=== PATIENT | male | born 1975 | race Caucasian/White ===

== ENCOUNTER 2017-11-09 15:12 | Observation (INO) | payer SELFPAY ==
[~2017-11-09] VITALS: Ht 165.1 cm; Wt 67.1 kg
[2017-11-09] VITALS (8 sets, daily range): BP systolic 110–131; BP diastolic 63–84; PULSE 102–148; RESP 16–18; TEMP 97.9–99.2; O2SAT 93–100
[2017-11-09] MEDS ORDERED: SODIUM CHLOR 0.9% 1000 ML INJ 1,000 ML IV ONE (15:23)
--- NOTE | 2017-11-09 15:29 | PD ---
HPI Chief Complaint: OD/ Ingestion Time Seen by Provider: 15:14 Travel History International Travel<30 days: No Contact w/Intl Traveler<30days: No Traveled to known affect area: No History of Present Illness HPI The patient is a 41-year-old male who presents to the emergency department via EMS after an apparent accidental overdose. The patient states he injected heroin prior to arrival in the right hand. The patient was found on the ground by friends, unresponsive, with snoring respirations according to EMS. Police tried to give the patient nasal Narcan, there was no response. When EMS arrived they placed an IV and administered 0.8 mg of Narcan. The patient then awakened and was alert and oriented. The patient states he just got out of "[facility] "shelter and has been complaining of right shoulder pain for several months. The patient states his right shoulder is dislocated and he is unable to use it with standing upright. The patient denies any chest pain, shortness breath, nausea, vomiting, or abdominal pain. He does have a history of illicit drug use. He denies the use of any methamphetamines, cocaine, or alcohol prior to arrival. [facility] Past Medical History Medical History: Denies Significant Hx LMP: n/a Past Surgical History Surgical History: No Previous Surgery Social History Alcohol Use: No Tobacco Use: Yes Substance Use: Yes (IV opiates) Allergies-Medications (Allergen,Severity, Reaction): Coded Allergies: No Known Allergies (Unverified , 11/09/17) Reported Meds & Prescriptions Reported Meds & Active Scripts Active No Active Prescriptions or Reported Medications Review of Systems Except as stated in HPI: all other systems reviewed are Neg General / Constitutional: No: Fever Cardiovascular: No: Chest Pain or Discomfort Respiratory: No: Shortness of Breath Gastrointestinal: No: Nausea, Vomiting, Abdominal Pain Musculoskeletal: Positive: Limited ROM, Pain Neurologic: No: Dizziness Psychiatric: Positive: Substance Abuse Physical Exam Narrative GENERAL: Awake, alert, pleasant 41-year-old male who appears his stated age and is in no acute respiratory distress. SKIN: Focused skin assessment warm/dry. HEAD: Atraumatic. Normocephalic. EYES: Pupils equal and round. No scleral icterus. No injection or drainage. ENT: No nasal bleeding or discharge. Mucous membranes pink and moist. NECK: Trachea midline. No JVD. CARDIOVASCULAR: Regular, tachycardic with a heart rate in the 130s. RESPIRATORY: No accessory muscle use. Clear to auscultation. Breath sounds equal bilaterally. GASTROINTESTINAL: Abdomen soft, non-tender, nondistended. No rebound tenderness. MUSCULOSKELETAL: Mild swelling of the right shoulder. Limited ability to actively abduct and extend the right shoulder. Passively I'm able to extend it to 60 and abduct it to 45. NEUROLOGICAL: Awake and alert. No obvious cranial nerve deficits. Motor grossly within normal limits. Normal speech. Nonfocal. Oriented 3. PSYCHIATRIC: Appropriate mood and affect; insight and judgment normal. Data Data Last Documented VS Vital Signs Date Time Temp Pulse Resp B/P (MAP) Pulse Ox O2 Delivery O2 Flow Rate FiO2 11/09/17 17:28 18 97 11/09/17 17:26 108 Nasal Cannula 2.00 11/09/17 15:17 99.2 Orders Orders Electrocardiogram (11/09/17 15:23) Complete Blood Count With Diff (11/09/17 15:23) Comprehensive Metabolic Panel (11/09/17 15:23) Chest, Single Ap (11/09/17 15:23) Iv Access Insert/Monitor (11/09/17 15:23) Ecg Monitoring (11/09/17 15:23) Oximetry (11/09/17 15:23) Sodium Chloride 0.9% Flush (Ns Flush) (11/09/17 15:30) Sodium Chlor 0.9% 1000 Ml Inj (Ns 1000 M (11/09/17 15:23) Drug Screen, Random Urine (11/09/17 15:23) Alcohol (Ethanol) (11/09/17 15:23) Shoulder, Limited(2vws) (11/09/17 ) Naloxone Inj (Narcan Inj) (11/09/17 18:30) Admit Order (Ed Use Only) (11/09/17 18:32) Labs Laboratory Tests Test 11/09/17 15:40 White Blood Count 11.2 TH/MM3 Red Blood Count 3.73 MIL/MM3 Hemoglobin 10.9 GM/DL Hematocrit 32.9 % Mean Corpuscular Volume 88.2 FL Mean Corpuscular Hemoglobin 29.3 PG Mean Corpuscular Hemoglobin Concent 33.2 % Red Cell Distribution Width 13.3 % Platelet Count 170 TH/MM3 Mean Platelet Volume 7.0 FL Neutrophils (%) (Auto) 69.4 % Lymphocytes (%) (Auto) 17.1 % Monocytes (%) (Auto) 11.7 % Eosinophils (%) (Auto) 0.5 % Basophils (%) (Auto) 1.3 % Neutrophils # (Auto) 7.8 TH/MM3 Lymphocytes # (Auto) 1.9 TH/MM3 Monocytes # (Auto) 1.3 TH/MM3 Eosinophils # (Auto) 0.1 TH/MM3 Basophils # (Auto) 0.1 TH/MM3 CBC Comment AUTO DIFF Differential Total Cells Counted 100 Neutrophils % (Manual) 69 % Band Neutrophils % 7 % Lymphocytes % 14 % Monocytes % 10 % Neutrophils # (Manual) 8.5 TH/MM3 Differential Comment FINAL DIFF MANUAL Platelet Estimate NORMAL Platelet Morphology Comment NORMAL Blood Urea Nitrogen 18 MG/DL Creatinine 1.48 MG/DL Random Glucose 125 MG/DL Total Protein 7.0 GM/DL Albumin 3.0 GM/DL Calcium Level 8.3 MG/DL Alkaline Phosphatase 127 U/L Aspartate Amino Transf (AST/SGOT) 110 U/L Alanine Aminotransferase (ALT/SGPT) 271 U/L Total Bilirubin 0.4 MG/DL Sodium Level 137 MEQ/L Potassium Level 3.6 MEQ/L Chloride Level 104 MEQ/L Carbon Dioxide Level 23.2 MEQ/L Anion Gap 10 MEQ/L Estimat Glomerular Filtration Rate 53 ML/MIN Ethyl Alcohol Level LESS THAN 3 MG/DL MDM Medical Decision Making Medical Screen Exam Complete: Yes Emergency Medical Condition: Yes Medical Record Reviewed: Yes Interpretation(s) EKG reveals sinus tachycardia with short FL interval. Rate 140. Laboratory Tests Test 11/09/17 15:40 White Blood Count 11.2 TH/MM3 Red Blood Count 3.73 MIL/MM3 Hemoglobin 10.9 GM/DL Hematocrit 32.9 % Mean Corpuscular Volume 88.2 FL Mean Corpuscular Hemoglobin 29.3 PG Mean Corpuscular Hemoglobin Concent 33.2 % Red Cell Distribution Width 13.3 % Platelet Count 170 TH/MM3 Mean Platelet Volume 7.0 FL Neutrophils (%) (Auto) 69.4 % Lymphocytes (%) (Auto) 17.1 % Monocytes (%) (Auto) 11.7 % Eosinophils (%) (Auto) 0.5 % Basophils (%) (Auto) 1.3 % Neutrophils # (Auto) 7.8 TH/MM3 Lymphocytes # (Auto) 1.9 TH/MM3 Monocytes # (Auto) 1.3 TH/MM3 Eosinophils # (Auto) 0.1 TH/MM3 Basophils # (Auto) 0.1 TH/MM3 CBC Comment AUTO DIFF Differential Total Cells Counted 100 Neutrophils % (Manual) 69 % Band Neutrophils % 7 % Lymphocytes % 14 % Monocytes % 10 % Neutrophils # (Manual) 8.5 TH/MM3 Differential Comment FINAL DIFF MANUAL Platelet Estimate NORMAL Platelet Morphology Comment NORMAL Blood Urea Nitrogen 18 MG/DL Creatinine 1.48 MG/DL Random Glucose 125 MG/DL Total Protein 7.0 GM/DL Albumin 3.0 GM/DL Calcium Level 8.3 MG/DL Alkaline Phosphatase 127 U/L Aspartate Amino Transf (AST/SGOT) 110 U/L Alanine Aminotransferase (ALT/SGPT) 271 U/L Total Bilirubin 0.4 MG/DL Sodium Level 137 MEQ/L Potassium Level 3.6 MEQ/L Chloride Level 104 MEQ/L Carbon Dioxide Level 23.2 MEQ/L Anion Gap 10 MEQ/L Estimat Glomerular Filtration Rate 53 ML/MIN Ethyl Alcohol Level LESS THAN 3 MG/DL Last Impressions Chest X-Ray 11/09/17 1523 Signed Impressions: Service Date/Time: Thursday, November 09, 2017 15:45 - CONCLUSION: No acute disease. Figueroa Montero MD Shoulder X-Ray 11/09/17 0000 Signed Impressions: Service Date/Time: Thursday, November 09, 2017 15:47 - CONCLUSION: Large defect humeral head likely related to old fracture. Figueroa Montero MD Differential Diagnosis Differential diagnosis includes opiate overdose, accidental overdose, withdrawal , aspiration, hypoxia, polysubstance abuse, electrolyte abnormality, dehydration. Narrative Course IV was established, labs are drawn and sent, and the patient was placed on cardiac telemetry monitoring and continuous pulse oximetry monitoring. Chest x- ray and x-ray the right shoulder were obtained. The patient was administered 1 L of IV fluids. Shoulder x-ray reveals a large defect likely related to an old fracture. Chest x-rays unremarkable. ALT and AST are elevated. The patient was monitored in the emergency department, his heart rate came down to 100. However, the patient's oxygen saturation would drop to 88% on room air. The patient was reevaluated at 6 PM and had to have a sternal rub. Therefore, the patient was administered a second dose of Narcan 0.4 mg intravenously. The patient will require 23 hour observation into the opiates have worn off. Physician Communication Physician Communication The on-call medical service was paged for 23 hour observation. I discussed the patient with Dr. Anand who agrees with 23 hour observation. Diagnosis Primary Impression: Accidental heroin overdose Qualified Codes: T40.1X1A - Poisoning by heroin, accidental (unintentional), initial encounter Admitting Information Admitting Physician Requests: Observation Patient Instructions: General Instructions Additional Instructions: Stop using illegal drugs. Follow-up with [facility]. Return if symptoms worsen or progress. Scripts No Active Prescriptions or Reported Meds Condition: Stable James Dang MD Nov 09, 2017 15:29
[2017-11-09] MEDS ORDERED: SODIUM CHLORIDE 0.9% FLUSH 10 ML FLUSH IVF PRN (15:30)
[2017-11-09 15:59] LABS: AUTOMATED NEUTROPHIL # 7.8 TH/MM3 (1.8-7.7); BASOPHIL # 0.1 TH/MM3 (0-0.2); BASOPHIL % 1.3 % (0.0-2.0); EOSINOPHIL # 0.1 TH/MM3 (0-0.4); EOSINOPHIL % 0.5 % (0.0-4.0); HEMATOCRIT 32.9 % (39.0-51.0); HEMOGLOBIN 10.9 GM/DL (13.0-17.0); LYMPH % 17.1 % (9.0-44.0); LYMPHOCYTE # 1.9 TH/MM3 (1.0-4.8); MEAN CELL VOLUME 88.2 FL (80.0-100.0); MEAN CORPUSCULAR HEMOGLOBIN 29.3 PG (27.0-34.0); MEAN CORPUSCULAR HGB CONC 33.2 % (32.0-36.0); MONO % 11.7 % (0.0-8.0); MONOCYTE # 1.3 TH/MM3 (0-0.9); NEUT % 69.4 % (16.0-70.0); PLATELET COUNT 170 TH/MM3 (150-450); RED BLOOD COUNT 3.73 MIL/MM3 (4.50-5.90); RED CELL DISTRIBUTION WIDTH 13.3 % (11.6-17.2); WHITE BLOOD COUNT 11.2 TH/MM3 (4.0-11.0)
--- NOTE | 2017-11-09 16:06 | RADRPT ---
EXAM DATE/TIME: 11/09/2017 15:45 [facility] COMPARISON: No previous studies available for comparison. INDICATIONS : Shortness of breath for one day. MEDICAL HISTORY : None. SURGICAL HISTORY : None. ENCOUNTER: Initial ACUITY: 1 day PAIN SCORE: 0/10 LOCATION: Bilateral chest FINDINGS: A single view of the chest demonstrates the lungs to be symmetrically aerated without evidence of mas s, infiltrate or effusion. The cardiomediastinal contours are unremarkable. Osseous structures are intact. CONCLUSION: No acute disease. Figueroa Montero MD on November 09, 2017 at 16:03 Board Certified Radiologist. This report was verified electronically.
--- NOTE | 2017-11-09 16:07 | RADRPT ---
EXAM DATE/TIME: 11/09/2017 15:47 [facility] COMPARISON: No previous studies available for comparison. INDICATIONS : Right shoulder pain for 2 months. No trauma. MEDICAL HISTORY : None. SURGICAL HISTORY : None. ENCOUNTER: Initial ACUITY: 2 months PAIN SCORE: 7/10 LOCATION: Right shoulder. FINDINGS: Two view examination of the right shoulder demonstrates large defect along the superolateral humeral head likely related to old fracture.. The glenohumeral and acromioclavicular joints are maintained. Bony mineralization is normal. CONCLUSION: Large defect humeral head likely related to old fracture. Figueroa Montero MD on November 09, 2017 at 16:03 Board Certified Radiologist. This report was verified electronically.
[2017-11-09 16:14] LABS: ALT (GPT) 271 U/L (12-78); AST (GOT) 110 U/L (15-37); BICARBONATE 23.2 MEQ/L (21.0-32.0); BLOOD UREA NITROGEN 18 MG/DL (7-18); CALCIUM 8.3 MG/DL (8.5-10.1); CHLORIDE 104 MEQ/L (98-107); CREATININE 1.48 MG/DL (0.60-1.30); GLOMERULAR FILTRATION RATE 53 ML/MIN (>89); GLUCOSE,RANDOM 125 MG/DL (74-106); SODIUM (NA) 137 MEQ/L (136-145)
[2017-11-09 16:17] LABS: ALKALINE PHOSPHATASE 127 U/L (45-117); TOTAL BILIRUBIN ADULT 0.4 MG/DL (0.2-1.0)
[2017-11-09 16:49] LABS: BANDS 7 % (0-6); LYMPHOCYTES 14 % (9-44); MONOCYTES 10 % (0-8); NEUTROPHIL # MANUAL DIFF 8.5 TH/MM3 (1.8-7.7); POLYS (SEG NEUTROPHILS) 69 % (16-70)
[2017-11-09] MEDS ORDERED: NALOXONE HCL 0.4 MG/ML AMP IV PUSH ONE (18:30)
[2017-11-09] MEDS ORDERED: LACTULOSE SYRUP 20 GM/30 ML CUP PO PRN (19:30)
[2017-11-09] MEDS ORDERED: ONDANSETRON HCL 4 MG/2 ML VIAL IVP PRN (19:30)
[2017-11-09] MEDS ORDERED: MAGNESIUM HYDROXIDE SUSP 30 ML CUP PO PRN (19:30)
[2017-11-09] MEDS ORDERED: BISACODYL 10 MG SUPP RECTAL PRN (19:30)
[2017-11-09] MEDS ORDERED: NALOXONE HCL 0.4 MG/ML AMP IV PUSH PRN (19:30)
[2017-11-09] MEDS ORDERED: SODIUM CHLORIDE 0.9% FLUSH 10 ML FLUSH IV FLUSH PRN (19:30)
[2017-11-09] MEDS ORDERED: SENNOSIDES 8.6 MG TAB PO PRN (19:30)
[2017-11-09] MEDS ORDERED: ACETAMINOPHEN 325 MG TAB PO PRN (19:30)
--- NOTE | 2017-11-09 19:49 | HHI.HP ---
[facility] Service [facility] Primary Care Physician Unknown Admission Diagnosis accidental heroin overdose, tachycardia, hypoxia Diagnoses: Travel History International Travel<30 Days: No Contact w/Intl Traveler <30 Da: No Traveled to Known Affected Are: No History of Present Illness 41-year-old male with a past medical history significant for IV drug abuse was brought to the emergency department by EMS for evaluation of possible overdose. The patient reports injecting heroin into his right arm and then does not remember anything until waking in the emergency department. Per ED records, the patient was found by friends unresponsive with snoring respirations according to EMS. Police administered nasal Narcan without response. EMS arrived and placed an IV and administered 0.8 mg of Narcan for which the patient was then awakened and found to be alert and oriented. The patient reports he was released from halfway yesterday. He also complains of a right shoulder "dislocation" with pain and limited range of motion. Vital signs: Pulse 114, respirations 18, BP 116/72, pulse ox 100% on room air. The patient has required repeat administration of Narcan at 6 PM with a drop in his oxygen saturation to 88%. Review of Systems Denies fever or chills Denies blurry vision, otorrhea, rhinorrhea Denies sore throat and cough No chest pain, palpitations No shortness of breath or wheezing No abdominal pain Denies constipation/diarrhea/nausea/vomiting Positive right shoulder pain Denies focal weakness No rashes Past Family Social History Past Medical History IV drug abuse Past Surgical History None Reported Medications None Allergies: Coded Allergies: No Known Allergies (Unverified , 11/09/17) Family History Father with diabetes mellitus. Social History Positive tobacco. Denies alcohol. Admits to IV drug abuse, heroin and cocaine. Denies any benzodiazepine use. Physical Exam Vital Signs Vital Signs Date Time Temp Pulse Resp B/P (MAP) Pulse Ox O2 Delivery O2 Flow Rate FiO2 11/09/17 19:00 114 18 116/72 (87) 100 Room Air 11/09/17 17:28 18 97 11/09/17 17:26 108 16 110/63 (79) 100 Nasal Cannula 2.00 11/09/17 15:57 115 18 125/79 (94) 98 Nasal Cannula 2.00 11/09/17 15:26 18 94 11/09/17 15:21 18 96 Room Air 11/09/17 15:17 99.2 148 18 131/78 (95) 93 Physical Exam GENERAL: male sitting up in bed SKIN: No rashes, ecchymoses or lesions. Cool and dry. HEAD: Atraumatic. Normocephalic. No temporal or scalp tenderness. EYES: Pupils equal round and reactive. Extraocular motions intact. No scleral icterus. No injection or drainage. ENT: Nose without bleeding, purulent drainage or septal hematoma. Throat without erythema, tonsillar hypertrophy or exudate. Uvula midline. Airway patent. NECK: Trachea midline. No JVD or lymphadenopathy. Supple, nontender, no meningeal signs. CARDIOVASCULAR: Tachycardic with regular rhythm without murmurs, gallops, or rubs. RESPIRATORY: Clear to auscultation. Breath sounds equal bilaterally. No wheezes , rales, or rhonchi. GASTROINTESTINAL: Abdomen soft, non-tender, nondistended. No hepato-splenomegaly , or palpable masses. No guarding. MUSCULOSKELETAL: Extremities without clubbing, cyanosis, or edema. No joint tenderness, effusion, or edema noted. No calf tenderness. NEUROLOGICAL: Awake and alert. Cranial nerves II through XII intact. Decreased muscle strength in the right shoulder, unable to assess as patient refused to participate in the exam secondary to pain. Full passive range of motion of the right shoulder. Remainder strength 5/5 throughout. Normal speech. Laboratory Laboratory Tests Test 11/09/17 15:40 White Blood Count 11.2 Red Blood Count 3.73 Hemoglobin 10.9 Hematocrit 32.9 Mean Corpuscular Volume 88.2 Mean Corpuscular Hemoglobin 29.3 Mean Corpuscular Hemoglobin Concent 33.2 Red Cell Distribution Width 13.3 Platelet Count 170 Mean Platelet Volume 7.0 Neutrophils (%) (Auto) 69.4 Lymphocytes (%) (Auto) 17.1 Monocytes (%) (Auto) 11.7 Eosinophils (%) (Auto) 0.5 Basophils (%) (Auto) 1.3 Neutrophils # (Auto) 7.8 Lymphocytes # (Auto) 1.9 Monocytes # (Auto) 1.3 Eosinophils # (Auto) 0.1 Basophils # (Auto) 0.1 CBC Comment AUTO DIFF Differential Total Cells Counted 100 Neutrophils % (Manual) 69 Band Neutrophils % 7 Lymphocytes % 14 Monocytes % 10 Neutrophils # (Manual) 8.5 Differential Comment FINAL DIFF MANUAL Platelet Estimate NORMAL Platelet Morphology Comment NORMAL Blood Urea Nitrogen 18 Creatinine 1.48 Random Glucose 125 Total Protein 7.0 Albumin 3.0 Calcium Level 8.3 Alkaline Phosphatase 127 Aspartate Amino Transf (AST/SGOT) 110 Alanine Aminotransferase (ALT/SGPT) 271 Total Bilirubin 0.4 Sodium Level 137 Potassium Level 3.6 Chloride Level 104 Carbon Dioxide Level 23.2 Anion Gap 10 Estimat Glomerular Filtration Rate 53 Ethyl Alcohol Level LESS THAN 3 Result Diagram: 11/09/17 1540 11/09/17 1540 Caprini VTE Risk Assessment Caprini VTE Risk Assessment: No/Low Risk (score <= 1) Caprini Risk Assessment Model Point Value = 1 Point Value = 2 Point Value = 3 Point Value = 5 Age 41-60 Minor surgery BMI > 25 kg/m2 Swollen legs Varicose veins or History of unexplained or recurrent spontaneous Oral contraceptives or hormone replacement Sepsis (< 1 month) Serious lung disease, including pneumonia (< 1 month) Abnormal pulmonary function Acute myocardial infarction Congestive heart failure (< 1 month) History of inflammatory bowel disease Medical patient at bed rest Age 61-74 Arthroscopic surgery Major open surgery (> 45 min) Laparoscopic surgery (> 45 min) Malignancy Confined to bed (> 72 hours) Immobilizing plaster cast Central venous access Age >= 75 History of VTE Family history of VTE Factor V Leiden Prothrombin [id number] Lupus anticoagulant Anticardiolipin antibodies Elevated serum homocysteine Heparin-induced thrombocytopenia Other congenital or acquired thrombophilia Stroke (< 1 month) Elective arthroplasty Hip, pelvis, or leg fracture Acute spinal cord injury (< 1 month) Prophylaxis Regimen Total Risk Factor Score Risk Level Prophylaxis Regimen 0-1 Low Early ambulation 2 Moderate Order ONE of the following: *Sequential Compression Device (SCD) *Heparin 5000 units SQ BID 3-4 Higher Order ONE of the following medications: *Heparin 5000 units SQ TID *Enoxaparin/Lovenox 40 mg SQ daily (WT < 150 kg, CrCl > 30 mL/min) *Enoxaparin/Lovenox 30 mg SQ daily (WT < 150 kg, CrCl > 10-29 mL/min) *Enoxaparin/Lovenox 30 mg SQ BID (WT < 150 kg, CrCl > 30 mL/min) AND/OR *Sequential Compression Device (SCD) 5 or more Highest Order ONE of the following medications: *Heparin 5000 units SQ TID (Preferred with Epidurals) *Enoxaparin/Lovenox 40 mg SQ daily (WT < 150 kg, CrCl > 30 mL/min) *Enoxaparin/Lovenox 30 mg SQ daily (WT < 150 kg, CrCl > 10-29 mL/min) *Enoxaparin/Lovenox 30 mg SQ BID (WT < 150 kg, CrCl > 30 mL/min) AND *Sequential Compression Device (SCD) Assessment and Plan Assessment and Plan Assessment/plan: 1. Accidental heroin overdose Patient required repeat administration of Narcan with decreased mentation and hypoxia Monitor vital signs closely Repeat Narcan administration when necessary 2. Right shoulder pain Right shoulder x-ray showed large defect of the humeral head likely related to old fracture Patient will need outpatient follow-up Case management consulted to assist 3. BABAR Creatinine 1.48, no baseline labs for comparison IV fluid hydration Monitor renal function 4. Transaminitis AST/ALT mildly elevated at 110/271 Likely secondary to drug abuse, hepatitis profile pending Monitor with outpatient follow FEN Regular diet NS at 100 cc/hr Electrolytes: monitor and replete prn Ambulation Fidelia Pascual MD Nov 09, 2017 19:49
[2017-11-09] MEDS: SODIUM CHLOR 0.9% 1000 ML INJ 1,000 ML IV SCH ×2 (20:25→23:48)
[2017-11-09] MEDS: SODIUM CHLORIDE 0.9% FLUSH 10 ML FLUSH IV FLUSH SCH (23:48)
[2017-11-10 00:15] VITALS: BP 110/76; PULSE 100; RESP 18; TEMP 98; O2SAT 99
[2017-11-10 04:09] VITALS: BP 121/85; PULSE 110; RESP 18; TEMP 97.4; O2SAT 99
[2017-11-10 06:10] LABS: AUTOMATED NEUTROPHIL # 4.5 TH/MM3 (1.8-7.7); BASOPHIL # 0.1 TH/MM3 (0-0.2); BASOPHIL % 0.6 % (0.0-2.0); EOSINOPHIL % 0.5 % (0.0-4.0); HEMATOCRIT 33.8 % (39.0-51.0); HEMOGLOBIN 11.8 GM/DL (13.0-17.0); LYMPHOCYTE # 3.3 TH/MM3 (1.0-4.8); MEAN CELL VOLUME 88.1 FL (80.0-100.0); MEAN CORPUSCULAR HEMOGLOBIN 30.7 PG (27.0-34.0); MEAN CORPUSCULAR HGB CONC 34.9 % (32.0-36.0); MEAN PLATELET VOLUME 7.4 FL (7.0-11.0); MONO % 12.1 % (0.0-8.0); MONOCYTE # 1.1 TH/MM3 (0-0.9); NEUT % 49.8 % (16.0-70.0); PLATELET COUNT 168 TH/MM3 (150-450); RED BLOOD COUNT 3.84 MIL/MM3 (4.50-5.90); RED CELL DISTRIBUTION WIDTH 13.6 % (11.6-17.2)
[2017-11-10 06:38] LABS: ALBUMIN 3.2 GM/DL (3.4-5.0); AST (GOT) 113 U/L (15-37); BICARBONATE 31.6 MEQ/L (21.0-32.0); BLOOD UREA NITROGEN 17 MG/DL (7-18); CHLORIDE 98 MEQ/L (98-107); CREATININE 1.08 MG/DL (0.60-1.30); GLOMERULAR FILTRATION RATE 76 ML/MIN (>89); GLUCOSE,RANDOM 83 MG/DL (74-106); SODIUM (NA) 136 MEQ/L (136-145)
[2017-11-10 06:39] LABS: ALT (GPT) 276 U/L (12-78)
[2017-11-10 06:41] LABS: ALKALINE PHOSPHATASE 124 U/L (45-117); TOTAL BILIRUBIN ADULT 0.9 MG/DL (0.2-1.0); TOTAL PROTEIN 7.7 GM/DL (6.4-8.2)
[2017-11-10 07:47] VITALS: BP 120/71; PULSE 116; RESP 18; TEMP 98.9; O2SAT 100
[2017-11-10] MEDS: SODIUM CHLORIDE 0.9% FLUSH 10 ML FLUSH IV FLUSH SCH (09:00)
[2017-11-10 11:23] LABS: HEPATITIS A AB IGM NEGATIVE (NEGATIVE); HEPATITIS B CORE AB IGM NEGATIVE (NEGATIVE); HEPATITIS B SURFACE ANTIGEN POSITIVE (NEGATIVE); HEPATITIS C AB IgG NEGATIVE (NEGATIVE)
[2017-11-10 12:00] VITALS: BP 115/73; PULSE 110; RESP 18; TEMP 99.5; O2SAT 97
[2017-11-10] MEDS ORDERED: CYCL10TA PO (12:15)
[2017-11-10] MEDS ORDERED: NAPR-855 PO (12:16)
--- NOTE | 2017-11-10 12:40 | HHI.PR ---
Subjective Remarks Follow-up for drug overdose status post Narcan administration. Patient is currently alert and oriented 3. He is ambulating well and tolerating diet well. He wants to go home. He does report chronic right shoulder pain. Objective Vitals Vital Signs Date Time Temp Pulse Resp B/P (MAP) Pulse Ox O2 Delivery O2 Flow Rate FiO2 11/10/17 07:47 98.9 116 18 120/71 (87) 100 11/10/17 04:09 97.4 110 18 121/85 (97) 99 11/10/17 00:15 98.0 100 18 110/76 (87) 99 11/09/17 20:55 97.9 102 18 121/84 (96) 99 11/09/17 20:25 98.1 110 18 121/74 (90) 100 Nasal Cannula 2.00 11/09/17 19:00 114 18 116/72 (87) 100 Room Air 11/09/17 17:28 18 97 11/09/17 17:26 108 16 110/63 (79) 100 Nasal Cannula 2.00 11/09/17 15:57 115 18 125/79 (94) 98 Nasal Cannula 2.00 11/09/17 15:26 18 94 11/09/17 15:21 18 96 Room Air 11/09/17 15:17 99.2 148 18 131/78 (95) 93 I/O 11/09/17 11/09/17 11/09/17 11/10/17 11/10/17 11/10/17 07:00 15:00 23:00 07:00 15:00 23:00 Intake Total 240 ml 560 ml Balance 240 ml 560 ml Intake Oral 240 ml 560 ml # Voids 4 # Bowel Movements 0 Result Diagram: 11/10/17 0435 11/10/17 0435 Imaging Last Impressions Chest X-Ray 11/09/17 1523 Signed Impressions: Service Date/Time: Thursday, November 09, 2017 15:45 - CONCLUSION: No acute disease. Figueroa Montero MD Shoulder X-Ray 11/09/17 0000 Signed Impressions: Service Date/Time: Thursday, November 09, 2017 15:47 - CONCLUSION: Large defect humeral head likely related to old fracture. Figueroa Montero MD Objective Remarks GENERAL: Alert, oriented 3, NAD. SKIN: Warm and dry. HEAD: Normocephalic. EYES: No scleral icterus. No injection or drainage. NECK: Supple, trachea midline. No JVD or lymphadenopathy. CARDIOVASCULAR: Regular rate and rhythm without murmurs, gallops, or rubs. RESPIRATORY: Breath sounds equal bilaterally. No accessory muscle use. GASTROINTESTINAL: Abdomen soft, non-tender, nondistended. MUSCULOSKELETAL: No cyanosis, or edema. Unable to lift his right arm using shoulder joint. BACK: Nontender without obvious deformity. No CVA tenderness. Procedures None A/P Problem List: (1) Accidental heroin overdose ICD Code: T40.1X1A - Poisoning by heroin, accidental (unintentional), initial encounter Status: Acute (2) Right shoulder pain ICD Code: M25.511 - Pain in right shoulder Assessment and Plan Mr. Breen is a pleasant 41-year-old male who was brought to the emergency department after an apparent extension overdose. Patient was having a lot of pain in his right shoulder joint. One of his friends suggested that he gets this IV heroine to manage his pain. After that she does not remember much. He required Narcan administration 0.8 mg. After Narcan he was awakened and alert and oriented. - Accidental drug overdose - Patient is back to baseline. He used to do IV drugs. However, he says he has not done IV drugs for a long time. - Yesterday he dated because his friend suggested that it will control his pain. - Patient is highly encouraged not to do any illicit drugs especially IV drugs. - Right shoulder pain - He has had x-ray done while he was in the [facility]. We recommended patient to go to community clinic such as [facility]. - Case management gave him paperwork for patients assistance. - We will also give him referral for outpatient physical therapy. - Flexeril and Naproxen for pain. Full code. Discharge patient to home Condition on discharge: Improved Regular Diet as tolerated Ad Evelyne activity Rx written: - Flexeril 10mg TID #20 - Naproxen OTC Follow-up with primary care physician within one week. PT 3 times a week. Problem Qualifiers (1) Accidental heroin overdose: Qualified Codes: T40.1X1A - Poisoning by heroin, accidental (unintentional), initial encounter Brian Park DO Nov 10, 2017 12:40 pm
--- NOTE | 2017-11-10 19:30 | EKG ---
Date Performed: 11/09/2017 Time Performed: 15:30:37 PTAGE: 41 years EKG: SINUS TACHYCARDIA WITH SHORT NV INTERVAL, POSSIBLE ATRIAL FLUTTER ABNORMAL RHYTHM ECG NO PREVIOUS TRACING DOCTOR: Halina Cortez Interpretating Date/Time 11/10/2017 19:25:27
== END 2017-11-10 14:39 | disposition home or self-care (01) ==
LOC: NEPE 15:12 → NEDA 18:34 → N06B 20:27
PROVIDERS: ADMIT Hospitalist; ATTEND Hospitalist
DX: T40.1X1A Poisoning by heroin, accidental (unintentional), initial encounter (principal); F17.210 Nicotine dependence, cigarettes, uncomplicated; F11.10 Opioid abuse, uncomplicated; R00.0 Tachycardia, unspecified; M25.511 Pain in right shoulder; N17.9 Acute kidney failure, unspecified; G89.29 Other chronic pain; F19.10 Other psychoactive substance abuse, uncomplicated
CPT/HCPCS: 71045; 73030; 80053; 80074; 80307; 85007; 85025; 85027; 93005; 96360; 96361; 99285; G0378; J2310; J7030